=== PATIENT | male | born 2000 | race Caucasian/White ===

== ENCOUNTER 2021-06-16 19:08 | Emergency (ER) | payer BC ==
[~2021-06-16] VITALS: Ht 182.9 cm; Wt 86.2 kg
--- NOTE | 2021-06-16 20:21 | ED GI ---
General Stated Complaint: FOREIGN BODY IN RECTUM Source of Information: Patient Exam Limitations: No Limitations History of Present Illness Date Seen by Provider: Jun 16, 2021 Time Seen by Provider: 20:18 Initial Comments To ER with reports of a plastic cylindrical foreign body of his rectum x2 hours. No pain otherwise healthy Timing/Duration: 1-3 Hours Severity/Quality: Moderate Location: Generalized Abdomen Radiation: No Radiation Activities at Onset: None Associated Symptoms: Denies Symptoms Allergies and Home Medications Allergies Coded Allergies: Penicillins (Verified Allergy, Unknown, 06/06/09) Patient Home Medication List Home Medication List Reviewed: Yes Review of Systems Review of Systems Constitutional: see HPI EENTM: No Symptoms Reported Respiratory: No Symptoms Reported Cardiovascular: No Symptoms Reported Gastrointestinal: See HPI Genitourinary: No Symptoms Reported Musculoskeletal: no symptoms reported Skin: no symptoms reported Psychiatric/Neurological: No Symptoms Reported Endocrine: No Symptoms Reported Hematologic/Lymphatic: No Symptoms Reported Physical Exam Vital Signs Vital Signs - First Documented 06/16/21 19:55 Temp 36.7 Pulse 115 Resp 18 B/P (MAP) 139/73 (95) Pulse Ox 98 O2 Delivery Room Air Capillary Refill : Height/Weight/BMI Height: '" Weight: lbs. oz. kg; BMI Method: General Appearance: WD/WN, no apparent distress Respiratory: no respiratory distress, no accessory muscle use Gastrointestinal: normal bowel sounds, non tender, soft Rectal: normal exam (I can barely feel the foreign body at the tip of my finger, unable to reach it. He denies any pain.) Extremities: normal range of motion, non-tender Neurologic/Psychiatric: alert, normal mood/affect, oriented x 3 Skin: normal color, warm/dry Progress/Results/Core Measures Results/Orders My Orders Orders - BLAS MERA APRN Abdomen/[place] (06/16/21 20:15) Vital Signs/I&O 06/16/21 19:55 Temp 36.7 Pulse 115 Resp 18 B/P (MAP) 139/73 (95) Pulse Ox 98 O2 Delivery Room Air Departure Communication (Admissions) 2043-I was unable to remove the foreign body. Dr. Cao is in house and plans to take the patient to the operating room after a failed attempt by him as well at removing the foreign body digitally in the emergency room. Impression Primary Impression: Rectal foreign body Disposition: HOME, SELF-CARE Condition: Stable Departure-Patient Inst. Decision time for Depature: 20:44 Referrals: NO,LOCAL PHYSICIAN (PCP/Family) Primary Care Physician Patient Instructions: Rectal Foreign Body BLAS MEAR APRN Jun 16, 2021 20:21
--- NOTE | 2021-06-16 20:36 | Diagnostic Imaging Report ---
REASON FOR EXAM: Foreign body in the rectum. COMPARISON: None. TECHNIQUE: 2 views of the abdomen. FINDINGS: There is a radiolucent foreign body within the pelvis and extending into the left lower quadrant measuring approximately 22 cm in length. No evidence of bowel obstruction. A moderate amount of stool is seen in the colon. No large collections of free intraperitoneal air are seen although the diaphragm is not included on this exam. The osseous structures are age-appropriate. IMPRESSION: Radiolucent foreign body within the pelvis extending into the left lower quadrant measuring approximately 22 cm in length. This most likely is within the rectum and sigmoid colon. Dictated by: Dictated on workstation # [id number]
[2021-06-16] MEDS ORDERED: ONDANSETRON 4 MG/2 ML (SDV) Z0FRAN ONE (20:56)
[2021-06-16] MEDS ORDERED: fentaNYL INJ 100 MCG/2 ML AMP ONE (20:56)
[2021-06-16] MEDS ORDERED: LIDOCAINE PF 2% 5 ML (XYLOCAINE) VIAL ONE (20:56)
[2021-06-16] MEDS ORDERED: proPOfol 200 MG/20 ML (DIPRIVAN) VIAL IV ONE (20:56)
[2021-06-16] MEDS ORDERED: ROCURONIUM 50 MG/5 ML (ZEMURON) VIAL IV ONE (20:56)
[2021-06-16] MEDS ORDERED: LACTATED RINGERS 1,000 ML IV PRN (21:00)
--- NOTE | 2021-06-16 21:03 | History & Physical-Surgical ---
History of Present Illness History of Present Illness Reason for visit/HPI CC: foreign body rectum seen and evaluated in ED. Patient is a 21 year old male with foreign body in rectum. Placed 2 hours ago. No pain. Attempted to remove but unsuccessful. Smooth cylinder object. No abdominal pain or rectal bleeding. No nausea or vomiting. No other complaints. Abdominal x ray demonstrating 22 cm foreign body likely in rectum/sigmoid. Date of Admission T Date Seen by a Provider: Jun 16, 2021 Time Seen by a Provider: 21:00 I consulted on this patient on 06/16/21 20:58 Attending Physician Admitting Physician No,Local Physician Consult Allergies and Home Medications Allergies Coded Allergies: Penicillins (Verified Allergy, Unknown, 06/06/09) Patient Home Medication List Home Medication List Reviewed: Yes Past Bledets-Nunmam-Bljdzb Hx Patient Social History Smoking Status: Never a Smoker Alcohol Use?: No Have you traveled recently?: No Surgeries History of Surgeries: No Respiratory History of Respiratory Disorde: No Cardiovascular History of Cardiac Disorders: No Neurological History of Neurological Disord: No Genitourinary History of Genitourinary Disor: No Gastrointestinal History of Gastrointestinal Di: No Musculoskeletal History of Musculoskeletal Dis: No Endocrine History of Endocrine Disorders: No HEENT History of HEENT Disorders: No Cancer History of Cancer: No Integumentary History of Skin or Integumenta: No Reviewed Nursing Assessment Reviewed/Agree w Nursing PMH: Yes Family Medical History Significant Family History: No Pertinent Family Hx Review of Systems Constitutional: No chills, No diaphoresis EENTM: No blurred vision, No double vision Respiratory: No cough, No dyspnea on exertion Cardiovascular: No chest pain, No palpitations Gastrointestinal: No abdominal pain, No nausea, No vomiting Genitourinary: No decreased output, No discharge Musculoskeletal: No back pain, No joint pain Skin: No change in color, No change in hair/nails Psychiatric/Neurological: Denies Depressed, Denies Emotional Problems All Other Systems Reviewed Negative Unless Noted: Yes (Negative excepted noted.) Physical Exam Vital Signs Vital Signs - First Documented 06/16/21 19:55 Temp 36.7 Pulse 115 Resp 18 B/P (MAP) 139/73 (95) Pulse Ox 98 O2 Delivery Room Air Capillary Refill : Less Than 3 Seconds Height, Weight, BMI Height: '" Weight: lbs. oz. kg; 25.00 BMI Method: General Appearance: No Apparent Distress, WD/WN HEENT: PERRL/EOMI, Normal ENT Inspection Neck: Full Range of Motion, Normal Inspection, Non Tender Respiratory: Chest Non Tender, No Accessory Muscle Use, No Respiratory Distress Cardiovascular: Regular Rate, Rhythm, No JVD Gastrointestinal: Non Tender, Soft Rectal: Other (foreign body in rectum, no blood, unable to remove) Back: Normal Inspection, No CVA Tenderness Extremity: Non Tender, No Calf Tenderness Neurologic/Psychiatric: Alert, Oriented x3, Normal Mood/Affect Skin: Normal Color, Warm/Dry Lymphatic: No Adenopathy Assessment/Plan Assessment/Plan Admission Diagonsis foreign body rectum/sigmoid Admission Status: Other (Same Day Surgery) Assessment/Plan foreign body rectum/sigmoid unable to remove on rectal exam in er we discussed going to OR for exam under anesthesia all other indicated procedures. He understands could include colonoscopy or even exploratory laparotomy in order to get removed. Patient demonstrates understanding and wishes to proceed. NPO To OR. REBECA PLUMMER DO Jun 16, 2021 21:03
[2021-06-16] MEDS ORDERED: SUCCINYLCHOLINE INJ 100 MG/5 ML SYR/VIAL ONE (21:39)
[2021-06-16] MEDS ORDERED: SEVOFLURANE (ULTANE) 15 ML INHAL SOLN ONE (21:39)
--- NOTE | 2021-06-16 21:44 | Progress Note-Post Operative ---
Post-Operative Progess Note Surgeon (s)/Associate Agent Insurance Sales (s) Surgeon REBECA PLUMMER DO Associate Agent Insurance Sales: na Pre-Operative Diagnosis rectal/sigmoid foreign body Post-Operative Diagnosis rectosigmoid foreing body, rectal inflammation, possible polyp Procedure & Operative Findings Date of Procedure 06/16/21 Procedure Performed/Findings exam under anesthesia, flexible sigmoidoscopy, snare retrieval of foreign body Anesthesia Type general Estimated Blood Loss Estimated blood loss (mL): none Specimens/Packing Specimens Removed foreign body REBECA PLUMMER DO Jun 16, 2021 21:43
--- NOTE | 2021-06-16 21:47 | Discharge Inst-Simple/Standard ---
Discharge Inst-Standard Patient Instructions/Follow Up Plan of Care/Instructions/FU: Kiley 2 weeks. You may have a polyp in the rectosigmoid area, difficult to evaluate due to some inflammation, would recommend having a colonoscopy in next month to evaluate. Activity as Tolerated: Yes Discharge Diet: Regular Diet Other Inst to Patient Follow up Appt: Make appointment Kiley 2 weeks. You may have a polyp in the rectosigmoid area, was difficult to evaluate due to some inflammation, would recommend having a colonoscopy in next month to evaluate. Symptoms to Report: Appetite Changes, Extremity Discoloration, Numbness/Tingling, Swelling Increased, Bleeding Excessive, Eyesight Changes, Pain Increased, Urine Color Change, Constipation(Persistent), Fever over 101 degree F, Pain/Pressure in chest, Urinating Difficulty, Cough Up/Vomit Blood, Heart Beat Irreg/Pounding, P ain/Pressure in jaw, Vaginal Bleeding Increase, Cramps in feet or legs, Lightheadedness, Pain/Pressure in shoulder, Diarrhea(Persistent), Memory Changes Suddenly, Questions/Concerns, Weight gain consecutive days, Dizziness/Fainting, Nausea/Vomiting, Shortness of Breath, Weight gain over 2 pounds If questions or concerns contact your physician Or seek help at emergency department. REBECA PLUMMER DO Jun 16, 2021 21:47
[2021-06-16 21:51] VITALS: BP 122/86
[2021-06-16 22:00] VITALS: BP 129/83
[2021-06-16 22:10] VITALS: BP 138/81
[2021-06-16 22:20] VITALS: BP 138/78
[2021-06-16 22:40] VITALS: BP 131/84
--- NOTE | 2021-06-17 00:05 | OPERATIVE REPORT ---
DATE OF SERVICE: 06/16/2021 PREOPERATIVE DIAGNOSIS: Rectosigmoid foreign body. POSTOPERATIVE DIAGNOSIS: Rectosigmoid foreign body, rectal inflammation, possible polyp. PROCEDURE: Exam under anesthesia, flexible sigmoidoscopy with snare retrieval of foreign body. SURGEON: Rebeca Cao DO ANESTHESIA: General. ESTIMATED BLOOD LOSS: None. COMPLICATIONS: None. SPECIMEN: Foreign body. INDICATIONS: The patient is a 21-year-old male who presented to the Emergency Department with foreign body that was placed in the rectum. It appears to be in the rectosigmoid area by x-ray. It was placed 2 hours previous to evaluation in the Emergency Department. The patient was discussed risks and benefits of exam under anesthesia, possible and all other indicated procedures. He understands the possibility of needing to have colonoscopy, possible exploratory laparotomy. He understood all information provided and wished to proceed. Consent was signed in the chart. DESCRIPTION OF PROCEDURE: The patient was taken to the operating suite. He was placed in lithotomy position. Once he was under general anesthesia, . Exam under anesthesia was performed. There were no palpable polyps, masses or ulcerations of the anus. Within the rectum, towards the proximal portion, foreign body was able to be felt, but due to the positioning of it, was unable to be grasped. Pressure was placed on the lower portion of the abdomen without any success where it could be removed. Flexible sigmoidoscopy was then performed. The scope was inserted in the rectum. In the proximal portion of the rectum, a sahni was present, which was unable to be manipulated slightly to help with extraction. Therefore, a snare was then placed through the scope and the distal portion was able to be snared and then guided until completely removed. Scope was then reinserted in the rectum and advanced through the rectum into the sigmoid and then slowly retracted back. There was some rectosigmoid inflammation present and a possible polyp within the rectosigmoid region. Scope was then continuously retracted back through the rectum until completely removed, noting no other pathology. RECOMMENDATIONS: The patient would be recommended a colonoscopy the next month to reevaluate the area of possible polyp, so as to be taken care of, if it is still present. The patient will have a followup appointment made within 2 weeks. Job ID: [id number] DocumentID: [id number] Dictated Date: 06/16/2021 21:52:20 Guest Relations Officer Date: 06/17/2021 00:04:43 Dictated By: REBECA CAO DO
[2021-06-17 00:49] VITALS: BP 127/71
--- NOTE | 2021-06-17 07:43 | Anesthesia-General Post-Op ---
General Patient Condition Mental Status/LOC: Same as Preop Cardiovascular: Satisfactory Nausea/Vomiting: Absent Respiratory: Satisfactory Pain: Controlled Complications: Absent Post Op Complications Complications None Follow Up Care/Instructions Patient Instructions None needed. Anesthesia/Patient Condition Patient Condition Patient is doing well, no complaints, stable vital signs, no apparent adverse anesthesia problems. No complications reported per nursing. ERICA LYN CRNA Jun 17, 2021 07:43
== END 2021-06-17 00:55 | disposition home or self-care (01) ==
LOC: EDUNIT# 19:08 → ER 19:10
DX: T18.5XXA Foreign body in anus and rectum, initial encounter (principal)
CPT/HCPCS: 74018